=== PATIENT | male | born 1970 | race Two or more races ===

== ENCOUNTER 2017-12-13 10:56 | Outpatient (CLI) | payer OTHER | END 2017-12-13 11:01 | disposition home or self-care (01) | LOC: RAD 501 10:56 | DX: N20.0 Calculus of kidney (principal) ==

== ENCOUNTER 2017-12-13 11:46 | Outpatient (CLI) | payer OTHER | END 2017-12-13 11:47 | disposition home or self-care (01) | LOC: LAB 11:46 | DX: N30.00 Acute cystitis without hematuria (principal) ==

== ENCOUNTER → 2019-01-08 | Emergency (ER) | payer OTHER ==
[~2019-01-08] VITALS: Ht 167.6 cm; Wt 72.6 kg
== END | disposition home or self-care (01) ==
LOC: ER 13:19
DX: N20.1 Calculus of ureter (principal)